=== PATIENT | male | born 1990 | race Caucasian/White ===

== ENCOUNTER 2023-09-25 02:55 | Emergency (ER) | payer OTHER, SELFPAY ==
[2023-09-25 03:00] VITALS: BP 133/83; PULSE 77; TEMP 37.7; O2SAT 100; BMI 38.7
--- NOTE | 2023-09-25 03:23 | ED.NAVMDI1 ---
HPI - Nausea/Vomiting/Diarrhea General Chief complaint: Nausea/Vomiting/Diarrhea Stated complaint: FEVER nauseous Time Seen by Provider: 09/25/23 03:20 Source: patient Mode of arrival: walk-in Limitations: no limitations History of Present Illness HPI Narrative: .. N/V/D since yesterday. recurrent episodes at both ends. Feels dehydrated. positive chills Related Data Home Medications ?Medication ?Instructions ?Recorded ?Confirmed escitalopram oxalate 10 mg tablet 10 mg PO DAILY 09/25/23 09/25/23 (Lexapro) Allergies Allergy/AdvReac Type Severity Reaction Status Date / Time No Known Drug Allergies Allergy Verified 09/25/23 03:03 Review of Systems ROS Status of ROS 10 or more systems reviewed and unremarkable except as noted in history and below Exam Constitutional Vital Signs, click to edit/add: Last Vital Signs Temp 99.2 F 09/25/23 05:00 Pulse 77 09/25/23 03:00 Resp 20 09/25/23 03:00 BP 133/83 09/25/23 03:00 Pulse Ox 100 09/25/23 03:00 O2 Del Method Room Air 09/25/23 03:00 Common normals: no apparent distress, average body habitus, oriented x3, no limitations, healthy appearing, alert and well nourished [facility] Common normals: normocephalic and head/scalp atraumatic Eye Common normals: PERRL and EOMs intact bilaterally Respiratory Common normals: normal respiratory effort, no retractions, no use of accessory muscles and clear to auscultation bilaterally Cardio Common normals: regular rate, regular rhythm, S1 normal heart sound and S2 normal heart sound GI Common normals: Normal to inspection, nondistended, normoactive bowel sounds present, soft to palpation and non-tender Extremity Common normals: normal to inspection and full ROM Neuro Common normals: oriented x3, CN's II-XII intact bilaterally, moves all extremities, no focal motor deficits and no sensory deficits noted Psych Appearance: grossly normal Course Vital Signs Vital signs: Vital Signs Temperature 99.9 F 09/25/23 03:00 Pulse Rate 77 09/25/23 03:00 Respiratory Rate 20 09/25/23 03:00 Blood Pressure 133/83 09/25/23 03:00 Pulse Oximetry 100 09/25/23 03:00 Oxygen Delivery Method Room Air 09/25/23 03:00 Temperature 99.2 F 09/25/23 05:00 Pulse Rate 77 09/25/23 03:00 Respiratory Rate 20 09/25/23 03:00 Blood Pressure 133/83 09/25/23 03:00 Pulse Oximetry 100 09/25/23 03:00 Oxygen Delivery Method Room Air 09/25/23 03:00 MDM - Nausea/Vomiting/Diarrhea MDM Narrative Medical decision making narrative: patient presents with recurrent vomiting and diarrhea of one day duration. found to have elevated lactic acid and leukocytosis. clinically dehydrated. After hydration and anti emetics patient is feeling much better and states he is ready to go home. Discharged with a prescription for phenergan and lomotil Lab Data Labs: Lab Results 09/25/23 Range/Units 03:05 WBC 16.5 H (4.0-11.0) 10^3/uL RBC 5.11 (4.70-6.10) 10^6/uL Hgb 15.2 (14.0-18.0) g/dL Hct 46.2 (42.0-54.0) % MCV 90.4 (80.0-94.0) fL MCH 29.7 (25.9-34.0) pg MCHC 32.9 (29.9-35.2) g/dL RDW 12.3 (11.0-15.0) % Plt Count 362 (150-450) 10^3/uL MPV 10.0 (9.5-13.5) fL Neut % (Auto) 86.1 H (43.0-75.0) % Lymph % (Auto) 4.4 L (20.5-60.0) % Gosper % (Auto) 6.5 (1.7-12.0) % Eos % (Auto) 0.4 L (0.9-7.0) % Baso % (Auto) 0.4 (0.2-2.0) % Neut # (Auto) 14.2 H (1.4-6.5) 10^3/uL Lymph # (Auto) 0.7 L (1.2-3.8) 10^3/uL Gosper # (Auto) 1.1 H (0.3-0.8) 10^3/uL Eos # (Auto) 0.1 (0.0-0.7) 10^3/uL Baso # (Auto) 0.1 (0.0-0.1) 10^3/uL Abs Immat Gran (auto) 0.37 H (0.00-0.03) 10^3/uL Imm/Tot Granulo (auto) 2.2 H (0.0-0.5) % Sodium 136 (136-145) mmol/L Potassium 3.9 (3.5-5.1) mmol/L Chloride 100 (98-107) mmol/L Carbon Dioxide 24.4 (21.0-32.0) mmol/L Anion Gap 15.5 BUN 14.0 (7.0-18.0) mg/dL Creatinine 1.20 (0.70-1.30) mg/dL Est GFR ( Amer) >60 (>=60) Est GFR (Non-Af Amer) >60 (>=60) BUN/Creatinine Ratio 11.7 Glucose 163 H (74-106) mg/dL Lactate 3.0 H* (0.4-2.0) mmol/L Calcium 10.0 (8.5-10.1) mg/dL Total Bilirubin 0.9 (0.2-1.0) mg/dL AST 23 (15-37) U/L ALT 41 (16-63) U/L Alkaline Phosphatase 94 (46-116) U/L Total Protein 8.6 H (6.4-8.2) g/dL Albumin 4.0 (3.4-5.0) g/dL Globulin 4.6 g/dL Albumin/Globulin Ratio 0.9 Lipase 29.0 (16.0-77.0) U/L Discharge Plan Discharge Stand Alone Forms: Portal Instructions Chief Complaint: Nausea/Vomiting/Diarrhea Clinical Impression: Gastroenteritis, Dehydration Patient Disposition: Home, Self-Care Prescriptions / Home Meds: No Action escitalopram oxalate [Lexapro] 10 mg tablet 10 mg PO DAILY Print Language: Dutch Instructions: Dehydration (ED), Gastroenteritis (ED) Additional Instructions: follow up with your doctor in the next couple of days for recheck Referrals: Physician,Non-Staff, MD [Primary Care Provider] - 1 week
[2023-09-25 03:34] LABS: Basophils Absolute Auto 0.1 10^3/uL (0.0-0.1); Basophils Percent Auto 0.4 % (0.2-2.0); Eosinophils Absolute Auto 0.1 10^3/uL (0.0-0.7); Eosinophils Percent Auto 0.4 % (0.9-7.0); Hematocrit 46.2 % (42.0-54.0); Hemoglobin 15.2 g/dL (14.0-18.0); Immature Granulocytes Abs Auto 0.37 10^3/uL (0.00-0.03); Immature Granulocytes Pct Auto 2.2 % (0.0-0.5); Lymphocytes Absolute Auto 0.7 10^3/uL (1.2-3.8); Lymphocytes Percent Auto 4.4 % (20.5-60.0); Mean Corpuscular HGB Conc 32.9 g/dL (29.9-35.2); Mean Corpuscular Hemoglobin 29.7 pg (25.9-34.0); Mean Corpuscular Volume 90.4 fL (80.0-94.0); Monocytes Absolute Auto 1.1 10^3/uL (0.3-0.8); Monocytes Percent Auto 6.5 % (1.7-12.0); Neutrophils Absolute Auto 14.2 10^3/uL (1.4-6.5); Neutrophils Percent Auto 86.1 % (43.0-75.0); Platelet Count 362 10^3/uL (150-450); Red Blood Count 5.11 10^6/uL (4.70-6.10); Red Cell Distribution Width 12.3 % (11.0-15.0); White Blood Count 16.5 10^3/uL (4.0-11.0)
[2023-09-25 03:41] LABS: Alanine Aminotransferase 41 U/L (16-63); Albumin Globulin Ratio 0.9; Alkaline Phosphatase 94 U/L (46-116); Anion Gap 15.5; Aspartate Amino Transferase 23 U/L (15-37); BUN Creatinine Ratio 11.7; Bilirubin Total 0.9 mg/dL (0.2-1.0); Carbon Dioxide 24.4 mmol/L (21.0-32.0); Chloride 100 mmol/L (98-107); Estimated GFR (African America >60 (>=60); Estimated GFR (Non-African Ame >60 (>=60); Globulin 4.6 g/dL; Glucose 163 mg/dL (74-106); Potassium 3.9 mmol/L (3.5-5.1); Sodium 136 mmol/L (136-145); Total Protein 8.6 g/dL (6.4-8.2)
[2023-09-25] MEDS: 0.9 % SODIUM CHLORIDE 1,000 ML 999 ML IV ×2 (03:44→04:56)
[2023-09-25] MEDS: ONDANSETRON PF 4 MG/2 ML VIAL IV (03:44)
[2023-09-25 05:00] VITALS: TEMP 37.3
[2023-09-25 06:00] VITALS: BP 128/64; PULSE 72; O2SAT 99
== END 2023-09-25 06:01 | disposition home or self-care (01) ==
PROVIDERS: Emergency Provider Internal Medicine
DX: E86.0 Dehydration (principal); K52.9 Noninfective gastroenteritis and colitis, unspecified
CPT/HCPCS: 36415; 80053; 83605; 83690; 85025; 96361; 96374; 99284